=== PATIENT | female | born 1990 ===

== ENCOUNTER 2016-11-24 22:17 | Emergency (ER) | payer SELFPAY ==
[2016-11-24 22:28] VITALS: BP 124/85; PULSE 100; RESP 16; TEMP 99.1; O2SAT 100
[2016-11-24] MEDS ORDERED: Sodium Chloride 0.9% 1,000 ML IV STA (23:04)
--- NOTE | 2016-11-24 23:07 | ED PDOC ---
HPI: General Adult Time Seen by Provider: 11/24/16 23:05 Chief Complaint (Nursing): Fever Chief Complaint (Provider): fever History Per: Patient Additional History Per: Patient Additional Complaint(s): 26 yo F in Ed for eval of fever sore thoart body aches and BECERRA x 2 days no vomiting diarrhea abd pain no hematuira no vaginal bleeding or discharge no foreign travel or sick contacts. Past Medical History Reviewed: Historical Data, Nursing Documentation, Vital Signs Vital Signs: Last Vital Signs Temp 99.1 F 11/24/16 22:25 Pulse 100 H 11/24/16 22:25 Resp 16 11/24/16 22:25 BP 124/85 11/24/16 22:25 Pulse Ox 100 11/25/16 00:59 - Medical History PMH: No Chronic Diseases - Family History Family History: States: No Known Family Hx - Home Medications Home Medications: Ambulatory Orders Medication Instructions Recorded Azithromycin [Zithromax] 250 mg PO DAILY #6 tab 11/25/16 - Allergies Allergies/Adverse Reactions: Allergies Allergy/AdvReac Type Severity Reaction Status Date / Time No Known Allergies Allergy Verified 11/24/16 22:25 Review of Systems ROS Statement: Except As Marked, All Systems Reviewed And Found Negative Constitutional: Positive for: Fever ENT: Positive for: Throat Pain Respiratory: Positive for: Cough Physical Exam - Reviewed Nursing Documentation Reviewed: Yes Vital Signs Reviewed: Yes - Physical Exam Appears: Positive for: Non-toxic, No Acute Distress, Uncomfortable Head Exam: Positive for: ATRAUMATIC, NORMAL INSPECTION, NORMOCEPHALIC Skin: Positive for: Normal Color, Warm, DRY Eye Exam: Positive for: EOMI, Normal appearance, PERRL ENT: Positive for: TM Is/Are (NAD), Tonsillar Swelling. Negative for: Pharyngeal Erythema, Tonsillar Exudate Neck: Positive for: Normal, Painless ROM Cardiovascular/Chest: Positive for: Regular Rate, Rhythm Respiratory: Positive for: CNT, Normal Breath Sounds Gastrointestinal/Abdominal: Positive for: Normal Exam, Bowel Sounds, Soft. Negative for: Tenderness Back: Positive for: L CVA Tenderness (mild). Negative for: R CVA Tenderness Extremity: Positive for: Normal ROM Neurologic/Psych: Positive for: Alert, Oriented - Laboratory Results Result Diagrams: 11/24/16 23:39 11/24/16 23:39 - ECG O2 Sat by Pulse Oximetry: 100 - Progress ED Course And Treament: will r/o strep and do UA,cbc,cmp 00:59-pt with hematuira and CVA tenderness wll do CT of abd r/o stone Medical Decision Making Medical Decision Making: pt with normal cT scan and normal appearing labs,. pt afebrile at this time pt well . pfever may be related to viral infection. advised to have pmd f.u and rest and return o ED if worsened. Disposition - Clinical Impression Clinical Impression: Fever in adult - Patient ED Disposition Is Patient to be Admitted: No Counseled Patient/Family Regarding: Studies Performed, Diagnosis, Need For Followup, Rx Given - Disposition Disposition: Routine/Home Disposition Time: 03:25 Condition: IMPROVED Prescriptions: Azithromycin [Zithromax] 250 mg PO DAILY #6 tab Instructions: Fever in Adults (ED)
[2016-11-24 23:44] LABS: BASO # 0.1 K/uL (0.0-0.2); BASO % 0.6 % (0.0-2.0); EOS # 0.1 K/uL (0.0-0.7); EOS % 0.8 % (0.0-4.0); LYMPH # 1.3 K/uL (1.0-4.3); LYMPH % 12.8 % (20.0-40.0); MEAN CELL VOLUME 90.5 fl (81.0-99.0); MEAN CORPUSCULAR HEMOGLOBIN 30.7 pg (27.0-31.0); MEAN CORPUSCULAR HGB CONC 33.9 g/dL (33.0-37.0); MEAN PLATELET VOLUME 9.5 fl (7.2-11.7); MONO # 0.7 K/uL (0.0-0.8); MONO % 7.1 % (0.0-10.0); NEUT % 78.7 % (50.0-75.0); NRBC % 0.1 % (0.0-0.0); RBC 4.23 Mil/uL (3.80-5.20); RED CELL DISTRIBUTION WIDTH 12.4 % (11.5-14.5); WHITE BLOOD COUNT 10.1 K/uL (4.8-10.8)
[2016-11-25 00:03] LABS: ALB/GLOB RATIO 1.2 (1.0-2.1); ALT/SGPT 31 U/L (9-52); AST/SGOT 19 U/L (14-36); BLOOD UREA NITROGEN 9 mg/dl (7-17); CALCIUM 9.1 mg/dL (8.4-10.2); GFR AFRICAN-AMERICAN > 60; GFR NON-AFRICAN AMERICAN > 60
[2016-11-25 00:13] LABS: SQUAMOUS EPITHIAL 2 /hpf (0-5); URINE BACTERIA RARE (<OCC); URINE BILIRUBIN NEGATIVE (NEGATIVE); URINE BLOOD MODERATE (NEGATIVE); URINE CLARITY CLEAR (Clear); URINE COLOR YELLOW (YELLOW); URINE GLUCOSE (UA) NEG (Normal); URINE LEUKOCYTE ESTERASE NEG Leu/uL (Negative); URINE NITRATE NEGATIVE (NEGATIVE); URINE PROTEIN NEGATIVE (NEGATIVE); URINE UROBILINOGEN 0.2-1.0 mg/dL (0.2-1.0)
--- NOTE | 2016-11-25 10:40 | CT ---
PROCEDURE: CT Abdomen and Pelvis without intravenous contrast HISTORY: CVA tenderness with hematuira COMPARISON: None. TECHNIQUE: CT scan of the abdomen and pelvis was performed without administration of oral or intravenous contrast. Coronal and sagittal reformatted images were obtained. Radiation dose: Total exam DLP = 372.86 mGy-cm. This CT exam was performed using one or more of the following dose reduction techniques: Automated exposure control, adjustment of the mA and/or kV according to patient size, and/or use of iterative reconstruction technique. FINDINGS: LOWER THORAX: There is linear atelectasis/scarring in the left lung base. The right lung base is clear. LIVER: The liver is normal in size. No intrahepatic biliary ductal dilatation. GALLBLADDER AND BILE DUCTS: There are no calcified gallstones. PANCREAS: The pancreas is normal in size. No ductal dilatation or calcifications. SPLEEN: The spleen is normal in size. ADRENALS: Both adrenal glands are normal in size without discrete nodule. KIDNEYS AND URETERS: Both kidneys are normal in size. There is no hydronephrosis or nephrolithiasis. There is a 14 x 14 mm high attenuation lesion in the left upper pole. There is also focal lobular prominence of the left interpolar region. No evidence of perinephric fat stranding or perinephric fluid collection. VASCULATURE: No aortic aneurysm. BOWEL: The small bowel loops are normal in caliber. There is moderate amount of stool in the colon. APPENDIX: Normal appendix. PERITONEUM: No free fluid. No free air. LYMPH NODES: No enlarged lymph nodes. BLADDER: Unremarkable. REPRODUCTIVE: Unremarkable. BONES: No acute fracture. Within normal limits for the patient's age. OTHER FINDINGS: None. IMPRESSION: 1. No evidence of nephrolithiasis or obstructive uropathy. 14 x 14 mm lesion in the upper pole of the left kidney could represent a hemorrhagic cyst. Also noted is prominence of the left interpolar region which could represent a prominent column of [place] however underlying mass lesion cannot be entirely excluded. Retroperitoneal ultrasound is recommended for further evaluation. 2. Constipation. Additional findings in the left kidney as described above. A preliminary report was provided by [employer] services. The study was tagged to the PA review folder.
== END 2016-11-25 03:35 | disposition home or self-care (01) ==
LOC: H.ER 22:17
DX: R50.9 Fever, unspecified (principal); K59.00 Constipation, unspecified
CPT/HCPCS: 74176; 80053; 81003; 81025; 85025; 87070; 87430; 96360; 99284; J7040